=== PATIENT | female | born 1945 | race Caucasian/White ===

== ENCOUNTER 2019-12-06 15:23 | Inpatient (IN) | payer MEDICARE, OTHER ==
[~2019-12-06] VITALS: Ht 157.5 cm; Wt 65.8 kg
--- NOTE | 2019-12-06 15:58 | NUR ---
PT IS IN ROOM #1A. DR LYNN EVALUATED THE PT.
[2019-12-06] MEDS ORDERED: ESCI5TAB PO (16:04)
[2019-12-06] MEDS ORDERED: CELE200C PO (16:04)
[2019-12-06] MEDS ORDERED: MONT10TA22 PO (16:04)
[2019-12-06] MEDS ORDERED: AMLO5TAB9 PO (16:04)
[2019-12-06] MEDS ORDERED: OLAN5TAB3 PO (16:04)
[2019-12-06] MEDS ORDERED: TRAZ-182 PO (16:04)
[2019-12-06 16:05] LABS: EOSINOPHILS # (AUTO) 0.2 K/uL (0.0-0.7); EOSINOPHILS % (AUTO) 5.1 % (0.0-7.0); HEMATOCRIT 37.4 % (31.2-41.9); HEMOGLOBIN 12.6 g/dL (10.9-14.3); LYMPHOCYTES # (AUTO) 0.8 K/uL (20.0-40.0); LYMPHOCYTES % (AUTO) 23.1 % (20.5-51.5); MEAN CORPUSCULAR HEMOGLOBIN 31.5 uug (24.7-32.8); MEAN CORPUSCULAR HGB CONC 34 g/dL (32.3-35.6); MEAN CORPUSCULAR VOLUME 93.3 fL (75.5-95.3); MONOCYTES # (AUTO) 0.3 K/uL (2.0-10.0); MONOCYTES % (AUTO) 8.6 % (0.0-11.0); NEUTROPHILS # (AUTO) 2.2 K/uL (1.8-8.9); NEUTROPHILS % (AUTO) 62.2 % (38.5-71.5); PLATELET COUNT (AUTO) 226 K/uL (179-408); RED BLOOD CELL COUNT(AUTO) 4.01 MIL/uL (3.63-4.92); WHITE BLOOD COUNT (AUTO) 3.6 K/uL (3.8-11.8)
[2019-12-06 16:11] LABS: CARBON DIOXIDE 30 mmol/L (21-32); CHLORIDE 105 mmol/L (98-107); CREATININE 1.3 mg/dL (0.6-1.3); GLUCOSE 94 mg/dL (74-106); POTASSIUM 4.3 mmol/L (3.5-5.1); UREA NITROGEN, BLOOD 22 mg/dL (7-18)
[2019-12-06 16:20] LABS: ETHANOL < 3 MG/DL (0-0)
[2019-12-06 16:24] LABS: ALANINE AMINOTRANSFERASE 22 U/L (14-59); ALKALINE PHOSPHATASE 100 U/L (50-136); ASPARTATE AMINOTRANSFERASE 20 U/L (15-37); BILIRUBIN,DIRECT 0.1 mg/dL (0.0-0.2); BILIRUBIN,TOTAL 0.3 mg/dL (0.2-1.0); TOTAL PROTEIN, SERUM 6.8 g/dL (6.4-8.2)
[2019-12-06 16:25] LABS: ACETAMINOPHEN < 2.0 ug/mL (10-30)
[2019-12-06 16:39] LABS: *BILIRUBIN,URIN NEGATIVE (NEGATIVE); *BLOOD, URINE NEGATIVE (NEGATIVE); *COLOR,URINE YELLOW (YELLOW); *KETONES,URINE NEGATIVE (NEGATIVE); NITRITE, URINE NEGATIVE (NEGATIVE); PH,URINE 8.5 (5.0-8.0); UGLUCOSE NEGATIVE (NEGATIVE)
[2019-12-06 16:45] LABS: *CLARITY,URINE SLIGHTLY HAZY (CLEAR)
[2019-12-06 16:46] LABS: LEUKOCYTE ESTERASE ,URINE TRACE (NEGATIVE)
[2019-12-06 16:47] LABS: BACTERIA,URINE FEW /HPF (NONE SEEN); MUCUS,URINE MODERATE /LPF (0-FEW); SQUAMOUS EPITHELIAL CELL,UR MODERATE /HPF (NONE SEEN)
[2019-12-06 16:51] LABS: *AMPHETAMINE, URINE NEGATIVE (NEGATIVE); *BARBITURATE, URINE NEGATIVE (NEGATIVE); *CANNABINOID, URINE NEGATIVE (NEGATIVE); *COCCAINE, URINE NEGATIVE (NEGATIVE); *OPIATE, URINE NEGATIVE (NEGATIVE); *PHENCYCLIDINE SCREEN,URINE NEGATIVE (NEGATIVE)
--- NOTE | 2019-12-06 18:59 | NUR ---
CRISIS FIRE EQUIPMENT INSPECTOR HELPER PARRISH EVALUATED THE PT. PT WAS PLACED ON 51/50 HOLD GRAVELY DISABLED. REPORT WAS GIVEN TO NUB CARD TENDER RN.
--- NOTE | 2019-12-06 19:15 | NUR ---
Patient in room. Watching TV. AA/Ox3 No s/s of distress Respiration even and unlabored SR up for safety. Bed locked, lowest position. Instructed patient to call nurse for assistance
--- NOTE | 2019-12-06 19:34 | NUR ---
Received pt on 5150 hold. AA/Ox3. Able to speak in complete sentences No s/s of distress. Respiration even and unlabored As per maintenance and operations supervisor, no sitter available at this time. OK to call security Will continue to monitor
--- NOTE | 2019-12-06 19:45 | NUR ---
Pt in bed. No s/s of distress Respiration even and unlabored
--- NOTE | 2019-12-06 20:00 | NUR ---
Security Son 1:1 Patient in bed. No s/s of distress
--- NOTE | 2019-12-06 20:15 | NUR ---
Security Son 1:1
--- NOTE | 2019-12-06 20:30 | NUR ---
Security Son 1:1
--- NOTE | 2019-12-06 20:45 | NUR ---
Security Son 1:1
--- NOTE | 2019-12-06 21:00 | NUR ---
Security Ragsdale 1:1
--- NOTE | 2019-12-06 21:15 | NUR ---
Security Ragsdale 1:1
--- NOTE | 2019-12-06 21:20 | NUR ---
Called for room. Spoke with Mary Ragsdale 1:1
--- NOTE | 2019-12-06 21:30 | NUR ---
Security Ragsdale 1:1
--- NOTE | 2019-12-06 21:45 | NUR ---
Security Ragsdale 1:1
--- NOTE | 2019-12-06 21:46 | NUR ---
Report given to VINEET Hodgson
[2019-12-06] MEDS ORDERED: MAG HYDROX/AL HYDROX/SIMETH 30 ML LIQUID UDC PO PRN (22:00)
[2019-12-06] MEDS ORDERED: TEMAZEPAM 7.5 MG CAPSULE PO PRN (22:00)
[2019-12-06] MEDS ORDERED: MAGNESIUM HYDROXIDE 30 ML LIQUID UDC PO PRN (22:00)
[2019-12-06] MEDS ORDERED: LORAZEPAM 1 MG TABLET PO PRN (22:00)
[2019-12-06] MEDS ORDERED: ACETAMINOPHEN 325 MG TABLET PO PRN (22:00)
--- NOTE | 2019-12-06 22:00 | NUR ---
Pt. admitted to [facility] Room 141B , under care of Dr. Gonzalez, Dr. Carrion Belongs List completed. All belongings with pt AA/Ox3. Able to speak in complete sentences Trasported pt via wheelchair No s/s of distress Respirations even and unlabored
[2019-12-06 22:15] VITALS: BP 116/68
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
--- NOTE | 2019-12-07 06:00 | NUR ---
slept 5 hours. continues to sleep. no distress noted.
[2019-12-07 07:30] VITALS: BP 106/73
[2019-12-07] MEDS: AMLODIPINE 5 MG TABLET PO SCH (08:45)
[2019-12-07] MEDS: CEphaleXIN 500 MG CAPSULE PO SCH ×2 (08:45→20:11)
[2019-12-07] MEDS: CELECOXIB 200 MG CAPSULE PO SCH ×2 (08:49→20:10)
[2019-12-07] MEDS ORDERED: CELECOXIB 200 MG CAPSULE PO SCH ×2 (09:00→17:00)
[2019-12-07] MEDS ORDERED: MONTELUKAST SODIUM 10 MG TABLET PO SCH ×2 (09:00)
[2019-12-07] MEDS ORDERED: AMLODIPINE 5 MG TABLET PO SCH (09:00)
--- NOTE | 2019-12-07 14:42 | NUR ---
INITIAL DISCHARGE PLAN: Prior to hospitalization, pt was staying with her daughter, Yu Morel [[phone]] at [address] [facility] [place] [address]. Per pts daughter, pt was suppose to be transferred to [facility] [Location: [address] [place] [address]; [phone]] after her stay at [facility], but the facility is not accepting new pts at this time due to COVID-19 restrictions. Pts family is interested in placement for pt.SW will work with pt, pt family, and MD to form a safe and proper discharge plan.
[2019-12-07] MEDS: ESCITALOPRAM OXALATE 10 MG TABLET PO SCH (15:19)
--- NOTE | 2019-12-07 15:44 | NUR ---
GPS: received patient AOx3, patient is calm cooperative no behaviorial distress at this time, patient calm cooperative compliant with medication, will continue monitor
[2019-12-07 16:00] VITALS: BP 125/65
[2019-12-07] MEDS: MONTELUKAST SODIUM 10 MG TABLET PO SCH (17:10)
--- NOTE | 2019-12-07 18:57 | NUR ---
Patient remain calm , no distress at this time
[2019-12-07] MEDS: OLANZAPINE 5 MG TABLET PO SCH (20:10)
[2019-12-07] MEDS: TRAZODONE 50 MG TABLET PO SCH (20:11)
[2019-12-07 20:22] VITALS: BP 122/50
--- NOTE | 2019-12-07 22:00 | NUR ---
received to care, pleasant upon approach, interacting well with select female peers. compliant with medications, and staff direction. as of 2200, she remains awake, in her room, eating a snack. no distress noted. will continue to monitor closely.
--- NOTE | 2019-12-08 06:00 | NUR ---
slept 8 hours. continues to sleep. no distress noted.
[2019-12-08 07:30] VITALS: BP 140/58
[2019-12-08] MEDS ORDERED: AMLODIPINE 5 MG TABLET PO SCH (09:00)
[2019-12-08] MEDS ORDERED: MONTELUKAST SODIUM 10 MG TABLET PO SCH (09:00)
[2019-12-08] MEDS: CEphaleXIN 500 MG CAPSULE PO SCH ×2 (09:10→20:46)
[2019-12-08] MEDS: ESCITALOPRAM OXALATE 10 MG TABLET PO SCH (09:10)
[2019-12-08] MEDS: AMLODIPINE 5 MG TABLET PO SCH (09:10)
[2019-12-08] MEDS: CELECOXIB 200 MG CAPSULE PO SCH ×2 (09:11→20:46)
[2019-12-08 16:00] VITALS: BP 119/65
[2019-12-08] MEDS: MONTELUKAST SODIUM 10 MG TABLET PO SCH (17:20)
--- NOTE | 2019-12-08 19:55 | NUR ---
Seen in the TV room during initial round, pleasant and cooperative. Denies any pain/discomforts at this time.Safety measures and fall precaution maintained. Continue care as planned.
[2019-12-08] MEDS: OLANZAPINE 5 MG TABLET PO SCH (20:46)
[2019-12-08] MEDS: TRAZODONE 50 MG TABLET PO SCH (20:46)
[2019-12-08 21:27] VITALS: BP 121/64
--- NOTE | 2019-12-09 06:27 | NUR ---
Slept 7.0 hours. No complaint presented all night. All needs attended and met. No significant event reported. VS stable
[2019-12-09 07:30] VITALS: BP 142/77
[2019-12-09] MEDS: ESCITALOPRAM OXALATE 10 MG TABLET PO SCH (08:37)
[2019-12-09] MEDS: AMLODIPINE 5 MG TABLET PO SCH (08:37)
[2019-12-09] MEDS: CEphaleXIN 500 MG CAPSULE PO SCH ×2 (08:39→20:48)
[2019-12-09] MEDS: CELECOXIB 200 MG CAPSULE PO SCH ×2 (08:40→21:02)
[2019-12-09 09:46] LABS: BASOPHILS % (AUTO) 1.1 % (0.0-2.0); EOSINOPHILS # (AUTO) 0.2 K/uL (0.0-0.7); EOSINOPHILS % (AUTO) 4.6 % (0.0-7.0); HEMATOCRIT 36.4 % (31.2-41.9); HEMOGLOBIN 12.4 g/dL (10.9-14.3); LYMPHOCYTES # (AUTO) 0.9 K/uL (20.0-40.0); LYMPHOCYTES % (AUTO) 21.1 % (20.5-51.5); MEAN CORPUSCULAR HEMOGLOBIN 31.6 uug (24.7-32.8); MEAN CORPUSCULAR HGB CONC 34 g/dL (32.3-35.6); MEAN CORPUSCULAR VOLUME 93.1 fL (75.5-95.3); MONOCYTES # (AUTO) 0.3 K/uL (2.0-10.0); MONOCYTES % (AUTO) 7.7 % (0.0-11.0); NEUTROPHILS # (AUTO) 2.7 K/uL (1.8-8.9); NEUTROPHILS % (AUTO) 65.5 % (38.5-71.5); PLATELET COUNT (AUTO) 201 K/uL (179-408); RED BLOOD CELL COUNT(AUTO) 3.91 MIL/uL (3.63-4.92); WHITE BLOOD COUNT (AUTO) 4.1 K/uL (3.8-11.8)
[2019-12-09 09:57] LABS: BILIRUBIN,TOTAL 0.4 mg/dL (0.2-1.0); CREATININE 1.2 mg/dL (0.6-1.3); MAGNESIUM 1.9 mg/dL (1.8-2.4); TOTAL PROTEIN, SERUM 6.8 g/dL (6.4-8.2)
--- NOTE | 2019-12-09 10:49 | NUR ---
Social Work Firearms Report ([employer]): Product Technician completed and submitted a [employer] firearms report for 5150 danger to self, other, grave disability certification. A copy of report has been placed in patient chart.
--- NOTE | 2019-12-09 16:06 | NUR ---
Social Work Individual Therapy: animal control licensing worker met with pt for brief counseling to address pt's aggressive and combative behavior. Pt was calm and cooperative during session. Pt was able to present with some insight into her situation. Pt states that she is motivated to comply with her treatment plan to return home. animal control licensing worker encouraged pt to attend group.
[2019-12-09] MEDS: MONTELUKAST SODIUM 10 MG TABLET PO SCH (17:03)
--- NOTE | 2019-12-09 17:47 | NUR ---
patient calm cooperative, no distress at this time, compliant with medication, denies Si and HI
[2019-12-09 20:33] VITALS: BP 137/68
[2019-12-09] MEDS: TRAZODONE 50 MG TABLET PO SCH (20:46)
[2019-12-09] MEDS: OLANZAPINE 5 MG TABLET PO SCH (20:47)
--- NOTE | 2019-12-09 22:00 | NUR ---
AAOx3-4 Watching TV in the dayroom upon initial rounds.needs attended. VSS. No acute distress noted. Compliant with meds. Denies any pain nor any discomfort. Will monitor patient.
--- NOTE | 2019-12-10 06:23 | NUR ---
Slept well throughout the night, had 6 hours and 45 minutes of sleep/ No distress noted. VSS. All needs attended and met. No significant report noted.
[2019-12-10 07:30] VITALS: BP 131/71
[2019-12-10] MEDS: CEphaleXIN 500 MG CAPSULE PO SCH ×2 (09:10→20:17)
[2019-12-10] MEDS: ESCITALOPRAM OXALATE 10 MG TABLET PO SCH (09:11)
[2019-12-10] MEDS: AMLODIPINE 5 MG TABLET PO SCH (09:12)
[2019-12-10] MEDS: CELECOXIB 200 MG CAPSULE PO SCH ×2 (09:19→20:17)
[2019-12-10 16:00] VITALS: BP 149/68
[2019-12-10] MEDS: MONTELUKAST SODIUM 10 MG TABLET PO SCH (17:56)
[2019-12-10 20:10] VITALS: BP 149/70
[2019-12-10] MEDS: TRAZODONE 50 MG TABLET PO SCH (20:17)
[2019-12-10] MEDS: OLANZAPINE 5 MG TABLET PO SCH (20:17)
--- NOTE | 2019-12-10 21:25 | NUR ---
Received pt resting in bed. No acute distress noted. C/o pain and requested for her scheduled celebrex. Due meds given as ordered. Pt denies suicidal ideation. Safety measures maintained. Will continue to monitor.
[2019-12-11 07:56] VITALS: BP 113/74
[2019-12-11] MEDS: CEphaleXIN 500 MG CAPSULE PO SCH ×2 (08:10→20:18)
[2019-12-11] MEDS: AMLODIPINE 5 MG TABLET PO SCH (08:11)
[2019-12-11] MEDS: CELECOXIB 200 MG CAPSULE PO SCH ×2 (08:11→20:14)
[2019-12-11] MEDS: ESCITALOPRAM OXALATE 10 MG TABLET PO SCH (08:11)
--- NOTE | 2019-12-11 11:10 | NUR ---
GPS NOTE, Received patient sitting on edge of the bed this am. Awake and alert but forgetful. Patient medication compliant. Encouraged patient to participate in group this am but patient is fixated on having a "Gatorade" with lunch and proceeded to inquire about it multiple times. Patient noted to isolative , but no signs of aggression. Continuing to monitor for behavior escalation and to monitor patients pain level. Reorientation to the situation also provided. Patient refuses to shower at this time. Will try again later. Electric Freight Car Operator was able to engage in some meaningful conversation today.
[2019-12-11 15:45] VITALS: BP 141/70
[2019-12-11] MEDS: MONTELUKAST SODIUM 10 MG TABLET PO SCH (17:05)
[2019-12-11 20:00] VITALS: BP 142/66
[2019-12-11] MEDS: OLANZAPINE 5 MG TABLET PO SCH (20:18)
[2019-12-11] MEDS: TRAZODONE 50 MG TABLET PO SCH (20:18)
--- NOTE | 2019-12-11 23:46 | NUR ---
GPS: PT UP IN TV ROOM SITTING WITH PEERS BUT NOT INTERACTIVE. PT A/OX3, DENIED THOUGHT OF HARMING SELF OR OTHERS. NO SI AT THIS TIME BUT VERY CONFUSE AND FORGETFUL. PT EASILY IRRITATED, WILL WALK AWAY WHEN SHE BECOMES ANGRY. NOTED PT SPEAKS IN VERY HIGH SPEECH TONE AND PRESSURED. REORIENT OT REALITY, HAVE PT FOCUS ON MATTER OF FACTS. PT COMPLIANT WITH ROUTINE MEDICATIONS AND CARE. AMBULATORY AND ABLE TO USE RRP. WILL CONTINUE TO MONITOR AND Q15/MINS HEAD CHECK ONGOING.
[2019-12-12 07:30] VITALS: BP 138/81
[2019-12-12] MEDS: ESCITALOPRAM OXALATE 10 MG TABLET PO SCH (09:12)
[2019-12-12] MEDS: CEphaleXIN 500 MG CAPSULE PO SCH ×2 (09:12→20:19)
[2019-12-12] MEDS: AMLODIPINE 5 MG TABLET PO SCH (09:13)
[2019-12-12] MEDS: CELECOXIB 200 MG CAPSULE PO SCH ×2 (09:15→20:19)
--- NOTE | 2019-12-12 12:25 | NUR ---
SRINIVASAN Coordination of Care: Left a message for Connie patient's therapist at [facility] ([phone]) regarding discharge planning. Waiting for a call back.
[2019-12-12 15:37] VITALS: BP 133/76
--- NOTE | 2019-12-12 16:35 | NUR ---
received patient in bed and denies any SI, compliant with medications, attendance in group activity.
[2019-12-12] MEDS: MONTELUKAST SODIUM 10 MG TABLET PO SCH (17:11)
--- NOTE | 2019-12-12 19:45 | NUR ---
Received patient in the activity room, socializing with other patients. Not in distress. Calm, cooperative, interacting well with fellow patient. Safety measures and afll precaution maintained. Continue care as planned.
[2019-12-12] MEDS: TRAZODONE 50 MG TABLET PO SCH (20:19)
[2019-12-12] MEDS: OLANZAPINE 5 MG TABLET PO SCH (20:19)
[2019-12-12 20:42] VITALS: BP 132/71
--- NOTE | 2019-12-13 06:03 | NUR ---
Shift End Report: Vs stable. Slept well. No complaint presented all night. Very cooperative and calm. All needs attended and met. No significant event reported.
--- NOTE | 2019-12-13 06:47 | NUR ---
Slept 6.3 hours.
[2019-12-13 07:30] VITALS: BP 160/88
[2019-12-13] MEDS: CEphaleXIN 500 MG CAPSULE PO SCH ×2 (08:27→20:07)
[2019-12-13] MEDS: ESCITALOPRAM OXALATE 10 MG TABLET PO SCH (08:27)
[2019-12-13] MEDS: AMLODIPINE 5 MG TABLET PO SCH (08:28)
[2019-12-13] MEDS: CELECOXIB 200 MG CAPSULE PO SCH ×2 (08:32→20:07)
--- NOTE | 2019-12-13 10:10 | NUR ---
SRINIVASAN Coordination of Care: Left spoke with oCnnie patient's therapist at [facility] ([phone]) regarding discharge planning and Connie stated that she is newly assigned to this case and will accept any placement offered by this health and social care teacher. This promotion writer confirmed that a placement will be secured for the patient upon discharge.
[2019-12-13 15:12] VITALS: BP 157/94
--- NOTE | 2019-12-13 15:38 | NUR ---
SW Discharge Planning: Faxed referral packet to [facility] ( ; fax: [phone]) attention to [place] for review and possible placement. Patient is accepted to facility upon discharge.
[2019-12-13] MEDS: MONTELUKAST SODIUM 10 MG TABLET PO SCH (17:10)
[2019-12-13] MEDS: OLANZAPINE 5 MG TABLET PO SCH (20:06)
[2019-12-13] MEDS: TRAZODONE 50 MG TABLET PO SCH (20:07)
[2019-12-13 21:03] VITALS: BP 144/78
--- NOTE | 2019-12-13 22:00 | NUR ---
received to care, watching tv with peers, pleasant upon approach. compliant with medications and staff direction. as of 2199, she appears to be asleep. no distress noted. will continue to monitor closely.
--- NOTE | 2019-12-14 06:00 | NUR ---
slept 8.25 hours. continues to sleep. no distress noted.
[2019-12-14 07:30] VITALS: BP 142/76
[2019-12-14] MEDS: CEphaleXIN 500 MG CAPSULE PO SCH (08:28)
[2019-12-14] MEDS: CELECOXIB 200 MG CAPSULE PO SCH ×2 (08:28→20:32)
[2019-12-14] MEDS: ESCITALOPRAM OXALATE 10 MG TABLET PO SCH (08:28)
[2019-12-14] MEDS: AMLODIPINE 5 MG TABLET PO SCH (08:52)
[2019-12-14 16:00] VITALS: BP 139/67
--- NOTE | 2019-12-14 16:36 | NUR ---
patient has been compliant with all po medication. encouraged to attendance and participated in group activity .
[2019-12-14] MEDS: MONTELUKAST SODIUM 10 MG TABLET PO SCH (17:34)
[2019-12-14] MEDS: OLANZAPINE 5 MG TABLET PO SCH (20:32)
[2019-12-14] MEDS: TRAZODONE 50 MG TABLET PO SCH (20:32)
[2019-12-14 21:28] VITALS: BP 134/72
--- NOTE | 2019-12-15 06:00 | NUR ---
slept 4.25 hours total. continues to sleep. no distress noted.
[2019-12-15 07:30] VITALS: BP 141/64
[2019-12-15] MEDS: AMLODIPINE 5 MG TABLET PO SCH (08:36)
[2019-12-15] MEDS: CELECOXIB 200 MG CAPSULE PO SCH ×2 (08:36→21:02)
[2019-12-15] MEDS: ESCITALOPRAM OXALATE 10 MG TABLET PO SCH (08:36)
--- NOTE | 2019-12-15 11:54 | NUR ---
SRINIVASAN Coordination of Care: Per patient's request social welfare administrator faxed patient's referral packet to [facility] in [place]: [address] , [place] [address] spoke with Sumanth dye and chemical coordinator for review of patient;s referral packet. Addendum: 12/16/19 at 1542 by DEENA GIVENS Patient is accepted to facility and will admit upon discharge from the hospital.
--- NOTE | 2019-12-15 15:22 | NUR ---
Social Work Individual Therapy: front desk worker met with patient for brief counseling to address patient's aggressive and combative behavior. Patient presents calm and cooperative with her care. Patient shares that she looks forward to her placement when she is discharged and is always open to new experience. SW provided active listening and supported patient's positive reinforcement.
[2019-12-15 16:00] VITALS: BP 139/40
[2019-12-15] MEDS: MONTELUKAST SODIUM 10 MG TABLET PO SCH (17:18)
--- NOTE | 2019-12-15 18:27 | NUR ---
EOS note: No significant acute changes this shift. Pt A/Ox2-3 verbally responsive and able to make needs known. Pt. compliant with medications and tx. Pt. exhibiting appropriate behavior, denies SI. Krishna Granger on-site with AM labs ordered. Pt. encouraged to drink water but prefers gatorade instead. Frequent rounding done. Safety measures in place. Will endorse to oncoming shift. Addendum: 12/15/19 at 1835 by JOSE MITCHELL RN Celebrex given for chronic pain and effective.
[2019-12-15 20:00] VITALS: BP 117/63
[2019-12-15] MEDS: OLANZAPINE 5 MG TABLET PO SCH (21:02)
[2019-12-15] MEDS: TRAZODONE 50 MG TABLET PO SCH (21:02)
--- NOTE | 2019-12-16 06:00 | NUR ---
slept 6.75 hours, total. continues to sleep. no distress noted.
[2019-12-16 07:30] VITALS: BP 175/89
[2019-12-16] MEDS: AMLODIPINE 5 MG TABLET PO SCH (08:10)
[2019-12-16] MEDS: CELECOXIB 200 MG CAPSULE PO SCH ×2 (08:11→21:15)
[2019-12-16] MEDS: ESCITALOPRAM OXALATE 10 MG TABLET PO SCH (08:11)
[2019-12-16 09:30] VITALS: BP 116/89
[2019-12-16 11:08] LABS: CREATININE 1.1 mg/dL (0.6-1.3); POTASSIUM 3.7 mmol/L (3.5-5.1)
[2019-12-16 15:20] VITALS: BP 137/70
--- NOTE | 2019-12-16 15:42 | NUR ---
SW Family Contact: SW attempted to reach patient's daughter 4 times today, Yu ([phone]) and is unable to reach or leave a voicemail because ehr voicemail box is full.
[2019-12-16] MEDS: MONTELUKAST SODIUM 10 MG TABLET PO SCH (18:04)
[2019-12-16 20:18] VITALS: BP 150/67
[2019-12-16] MEDS: OLANZAPINE 5 MG TABLET PO SCH (21:15)
[2019-12-16] MEDS: TRAZODONE 50 MG TABLET PO SCH (21:15)
--- NOTE | 2019-12-16 22:51 | NUR ---
Patient received watching tv with the residents, pleasant upon approach. compliant with medications and staff. No aggressive behavior noted will continue to monitor. Safe environment, frequent rounding, and clutter free environment. Bed in lowest position, bed locked,and bed alarm on while in bed.
[2019-12-17 07:30] VITALS: BP 179/80
--- NOTE | 2019-12-17 08:00 | NUR ---
GPS: RECEIVED PATIENT AOX3, COMPLIANT WITH MEDICATION, PATIENT BEEN REFUSING SHOWER, OFFERED SPONGE BATH BATH STILL REFUSE, NO DISTRESS, CALM AND COOPERATIVE, NO DISTRESS, WILL CONTINUE MONITOR
[2019-12-17] MEDS: ESCITALOPRAM OXALATE 10 MG TABLET PO SCH (08:36)
[2019-12-17] MEDS: CELECOXIB 200 MG CAPSULE PO SCH ×2 (08:37→20:42)
[2019-12-17] MEDS: AMLODIPINE 5 MG TABLET PO SCH (08:37)
[2019-12-17 16:00] VITALS: BP 161/85
[2019-12-17] MEDS: MONTELUKAST SODIUM 10 MG TABLET PO SCH (17:02)
--- NOTE | 2019-12-17 18:12 | NUR ---
patient remain calm,having good interaction with roommates, patient needed redirection
--- NOTE | 2019-12-17 19:50 | NUR ---
RECEIVED PATIENT IN BED, ALERT ORIENTED, NO COMPLAIN OF PAIN AT THIS TIME. PATIENT CALM NO BEHAVIORAL PROBLEM NOTED AT THIS TIME. PATIENT AMBULATE TO ACTIVITY ROOM THEN BACK TO HER ROOM, CONT TO MONITOR.
[2019-12-17] MEDS: OLANZAPINE 5 MG TABLET PO SCH (20:42)
[2019-12-17] MEDS: TRAZODONE 50 MG TABLET PO SCH (20:42)
[2019-12-17 20:43] VITALS: BP 156/82
--- NOTE | 2019-12-18 06:34 | NUR ---
PATIENT ASLEEP BUT AROUSABLE, NO COMPLAIN OF PAIN. PATIENT SLEPTFOR 7 HRS. CONT TO MONITOR.
[2019-12-18 07:30] VITALS: BP 155/78
[2019-12-18] MEDS: CELECOXIB 200 MG CAPSULE PO SCH ×2 (08:20→20:43)
[2019-12-18] MEDS: ESCITALOPRAM OXALATE 10 MG TABLET PO SCH (08:20)
[2019-12-18] MEDS: AMLODIPINE 5 MG TABLET PO SCH (08:28)
--- NOTE | 2019-12-18 14:12 | NUR ---
received patient in room eloise souza . Compliant with all medications.self care and ambulating possible discharge home tomorrows.
[2019-12-18 15:31] VITALS: BP 147/76
[2019-12-18] MEDS: MONTELUKAST SODIUM 10 MG TABLET PO SCH (17:20)
[2019-12-18 20:25] VITALS: BP 128/70
[2019-12-18] MEDS: TRAZODONE 50 MG TABLET PO SCH (20:43)
[2019-12-18] MEDS: OLANZAPINE 5 MG TABLET PO SCH (20:44)
[2019-12-19 07:30] VITALS: BP 188/77
[2019-12-19 08:34] VITALS: BP 188/77
[2019-12-19] MEDS: AMLODIPINE 5 MG TABLET PO SCH (08:34)
[2019-12-19] MEDS: CELECOXIB 200 MG CAPSULE PO SCH (08:34)
[2019-12-19] MEDS: ESCITALOPRAM OXALATE 10 MG TABLET PO SCH (08:34)
--- NOTE | 2019-12-19 09:03 | NUR ---
Discharge Note: Patient will be discharged to [facility] [address] [place] [address] ([phone]) via ambulance at 11am. Patient is aware and agreeable with discharge plans. Patient presents with euthymic mood and congruent affect. Patient denies suicidal or homicidal ideation. Patient is unable to provide care for herself, however, is willing to accept care that the facility. Patients daughter, Yu ([phone]) has been notified of patients discharge plan. Patient will be following up with Dr. Gonzalez psychiatrist and Dr. Cavanaugh Global Position System Technician at the facility.
== END 2019-12-19 12:30 | DRG 885 ==
LOC: ER 15:26 → GPS 21:46
PROVIDERS: ADMIT Psychiatry & Neurology Psychiatry; ATTEND Nurse Practitioner Acute Care
DX: F31.30 Bipolar disorder, current episode depressed, mild or moderate severity, unspecified (principal); N17.0 Acute kidney failure with tubular necrosis; N39.0 Urinary tract infection, site not specified; G89.29 Other chronic pain; M19.90 Unspecified osteoarthritis, unspecified site; F29 Unspecified psychosis not due to a substance or known physiological condition; I10 Essential (primary) hypertension; R79.89 Other specified abnormal findings of blood chemistry; Z73.6 Limitation of activities due to disability; E86.9 Volume depletion, unspecified; T39.395A Adverse effect of other nonsteroidal anti-inflammatory drugs [NSAID], initial encounter; Y92.89 Other specified places as the place of occurrence of the external cause; Z79.899 Other long term (current) drug therapy
CPT/HCPCS: 36415; 80307; 83735; 83970; 84100; 85025; 93005; G0480; G0480-TC; U0003-CS